=== PATIENT | female | born 1985 | race Caucasian/White ===

== ENCOUNTER → 2016-08-19 | Outpatient (CLI) | payer MEDICAID ==
[~2016-08-19] MED LIST: None per pt
== END | disposition home or self-care (01) ==
LOC: CFH 15:30
PROVIDERS: ATTEND Obstetrics & Gynecology
DX: O20.0 Threatened abortion (principal); Z3A.01 Less than 8 weeks gestation of pregnancy
CPT/HCPCS: 76801

== ENCOUNTER → 2017-12-16 | Outpatient (CLI) | payer OTHER, MEDICAID ==
[2017-12-16 16:00] LABS: BASOPHILS # (AUTO) 0.03 x10^3/uL (0-0.1); BASOPHILS % (AUTO) 0 % (0-1); EOSINOPHILS # (AUTO) 0.11 x10^3/uL (0-0.4); EOSINOPHILS % (AUTO) 2 % (1-7); LYMPHOCYTES # (AUTO) 1.76 x10^3/uL (1-3.4); LYMPHOCYTES % (AUTO) 25 % (22-44); MD NO; MEAN CORPUSCULAR HEMOGLOBIN 31.8 pg (27.0-34.8); MEAN CORPUSCULAR HGB CONC 33.9 g/dL (32.4-35.8); MEAN CORPUSCULAR VOLUME 93.9 fL (80-100); MEAN PLATELET VOLUME 7.4 fL (7.4-10.4); MONOCYTES # (AUTO) 0.79 x10^3/uL (0.2-0.8); MONOCYTES % (AUTO) 11 % (2-9); NEUTROPHILS # (AUTO) 4.48 x10^3/uL (1.8-6.8); NEUTROPHILS % (AUTO) 62 % (42-75); PLATELET COUNT 196 x10^3/uL (130-400); RED BLOOD COUNT 4.63 x10^6/uL (3.82-5.3); RED CELL DISTRIBUTION WIDTH 13.1 % (9.6-15.2)
== END | disposition home or self-care (01) ==
LOC: STAR 15:20
PROVIDERS: ATTEND Obstetrics & Gynecology
DX: Z01.818 Encounter for other preprocedural examination (principal)
CPT/HCPCS: 36415; 84703; 85025

== ENCOUNTER 2017-12-21 07:59 | Day surgery (SDC) | payer OTHER, MEDICAID ==
[~2017-12-21] VITALS: Ht 180.3 cm; Wt 71.1 kg
[2017-12-21 08:47] VITALS: BP 121/81
[2017-12-21] MEDS ORDERED: LACTATED RINGERS 1,000 ML IV SCH (08:47)
[2017-12-21 09:01] LABS: HCG UR SG 1.021 (1.003-1.030)
[2017-12-21] MEDS ORDERED: BUPIVACAINE/PF-EPI 0.25% 1:200K ONE (09:04)
[2017-12-21] MEDS ORDERED: FENTANYL PF 250 MCG/5ML ONE (09:17)
[2017-12-21] MEDS ORDERED: MIDAZOLAM 1 MG/ML, 2ML ONE (09:17)
[2017-12-21] MEDS ORDERED: ACETAMINOPHEN 500 MG TABLET PO ONE (09:30)
[2017-12-21] MEDS ORDERED: FAMOTIDINE 20 MG TABLET PO ONE (09:30)
[2017-12-21] MEDS ORDERED: DIAZEPAM 5 MG TABLET PO ONE (09:30)
[2017-12-21] MEDS ORDERED: ONDANSETRON ODT 8 MG PO ONE (09:30)
[2017-12-21] MEDS ORDERED: LACTATED RINGERS 1,000 ML ONE (10:18)
[2017-12-21] MEDS ORDERED: SUCCINYLCHOLINE 20 MG/ML, 10ML ONE (11:10)
[2017-12-21] MEDS ORDERED: PROPOFOL 10 MG/ML, 20ML ONE (11:10)
[2017-12-21] MEDS ORDERED: DEXAMETHASONE 4 MG/ML, 1ML ONE (11:10)
[2017-12-21] MEDS ORDERED: ROCURONIUM 10MG/ML,5ML ONE (11:10)
[2017-12-21] MEDS ORDERED: ONDANSETRON 2MG/ML, 2ML ONE (11:10)
[2017-12-21] MEDS ORDERED: CEFAZOLIN 1,000 MG ONE (11:10)
[2017-12-21] MEDS ORDERED: NEOSTIGMINE 1 MG/ML, 10ML ONE (11:10)
[2017-12-21] MEDS ORDERED: GLYCOPYRROLATE 0.2MG/1ML, 5ML ONE (11:10)
[2017-12-21] MEDS ORDERED: PROPOFOL 50 ML ONE (11:24)
[2017-12-21] MEDS ORDERED: FENTANYL PF 100 MCG/2ML ONE (11:27)
[2017-12-21] MEDS ORDERED: SILVER NITRATE STICK TP ONE ×2 (11:56→12:22)
[2017-12-21] MEDS ORDERED: LIDOCAINE-MPF 2% ,5ML ONE (12:05)
[2017-12-21] MEDS ORDERED: KETOROLAC 30 MG/1 ML ONE (12:20)
[2017-12-21] MEDS ORDERED: PROCHLORPERAZINE 5 MG/ML, 2ML IM PRN (12:30)
[2017-12-21] MEDS ORDERED: FENTANYL PF 100 MCG/2ML IV PRN (12:30)
[2017-12-21] MEDS ORDERED: ONDANSETRON ODT 8 MG PO PRN (12:30)
[2017-12-21] MEDS ORDERED: MEPERIDINE/PF 25MG/0.5ML IVPush PRN (12:30)
[2017-12-21] MEDS ORDERED: HYDROmorphone 1 MG/ML, 1ML IV PRN (12:30)
[2017-12-21] MEDS ORDERED: KETOROLAC 30 MG/1 ML IV PRN (12:30)
[2017-12-21] MEDS ORDERED: ONDANSETRON 2MG/ML, 2ML IV PRN (12:30)
[2017-12-21] MEDS ORDERED: OXYcodone 5 MG/5 ML ORAL.SOL UDC PO PRN (12:30)
[2017-12-21] MEDS ORDERED: MEPERIDINE/PF 50 MG/ML ONE (12:39)
== END 2017-12-21 15:45 | disposition home or self-care (01) ==
LOC: OUT 07:59
PROVIDERS: ATTEND Obstetrics & Gynecology
DX: N83.11 Corpus luteum cyst of right ovary (principal); N80.0 Endometriosis of uterus; N94.6 Dysmenorrhea, unspecified; N83.8 Other noninflammatory disorders of ovary, fallopian tube and broad ligament; Z98.890 Other specified postprocedural states; F17.210 Nicotine dependence, cigarettes, uncomplicated; F41.9 Anxiety disorder, unspecified
CPT/HCPCS: 58662; 81025; 88112; 88304; 88305; J0330; J0690; J1100; J1885; J2250; J2405; J2704; J2710; J3010; J3490; J7120; Q0162